=== PATIENT | female | born 1945 | race Caucasian/White ===

== ENCOUNTER → 2017-04-11 09:31 | Outpatient (CLI) | payer OTHER | END | disposition home or self-care (01) | LOC: LAB 09:31 | DX: R22.1 Localized swelling, mass and lump, neck (principal) ==

== ENCOUNTER 2017-04-18 06:28 | Outpatient (CLI) | payer OTHER | END 2017-04-18 06:39 | disposition home or self-care (01) | LOC: LAB 06:28 | DX: N39.0 Urinary tract infection, site not specified (principal); B34.9 Viral infection, unspecified; R82.79 Other abnormal findings on microbiological examination of urine ==

== ENCOUNTER 2017-05-14 12:41 | Outpatient (CLI) | payer OTHER | END 2017-05-14 16:20 | disposition home or self-care (01) | LOC: SONOGRAMA 12:41 | DX: N39.0 Urinary tract infection, site not specified (principal) ==

== ENCOUNTER → 2017-06-24 | Outpatient (CLI) | payer OTHER | END | disposition home or self-care (01) | LOC: TOM 08:13 | DX: R51 Headache (principal); S09.90XD Unspecified injury of head, subsequent encounter ==

== ENCOUNTER 2017-10-31 07:05 | Outpatient (CLI) | payer OTHER | END 2017-10-31 07:29 | disposition home or self-care (01) | LOC: LAB 07:05 | DX: I10 Essential (primary) hypertension (principal); Z13.0 Encounter for screening for diseases of the blood and blood-forming organs and certain disorders involving the immune mechanism; Z13.220 Encounter for screening for lipoid disorders; Z13.29 Encounter for screening for other suspected endocrine disorder; N39.0 Urinary tract infection, site not specified ==

== ENCOUNTER 2018-04-03 11:36 | Outpatient (CLI) | payer OTHER | END 2018-04-03 13:37 | disposition home or self-care (01) | LOC: LAB 11:36 | DX: N30.00 Acute cystitis without hematuria (principal); B96.1 Klebsiella pneumoniae [K. pneumoniae] as the cause of diseases classified elsewhere ==

== ENCOUNTER 2018-04-27 06:35 | Outpatient (CLI) | payer OTHER | END 2018-04-27 06:44 | disposition home or self-care (01) | LOC: LAB 06:35 | DX: I11.9 Hypertensive heart disease without heart failure (principal); E03.8 Other specified hypothyroidism ==

== ENCOUNTER 2018-05-13 14:47 | Outpatient (CLI) | payer OTHER | END 2018-05-13 15:23 | disposition home or self-care (01) | LOC: LAB 14:47 | DX: H25.011 Cortical age-related cataract, right eye (principal); Z98.41 Cataract extraction status, right eye; Z01.812 Encounter for preprocedural laboratory examination ==

== ENCOUNTER → 2018-05-15 | Outpatient (CLI) | payer OTHER | END | disposition home or self-care (01) | LOC: NUCLEAR 07:00 | DX: I20.9 Angina pectoris, unspecified (principal) | CPT/HCPCS: 78452; 93017; A9500; J0153 ==

== ENCOUNTER 2018-08-19 06:52 | Outpatient (CLI) | payer OTHER | END 2018-08-19 07:07 | disposition home or self-care (01) | LOC: LAB 06:52 | DX: E78.00 Pure hypercholesterolemia, unspecified (principal); I10 Essential (primary) hypertension; Z13.0 Encounter for screening for diseases of the blood and blood-forming organs and certain disorders involving the immune mechanism; Z13.29 Encounter for screening for other suspected endocrine disorder ==

== ENCOUNTER 2019-01-05 06:23 | Outpatient (CLI) | payer OTHER | END 2019-01-05 06:28 | disposition home or self-care (01) | LOC: LAB 06:23 | DX: E78.00 Pure hypercholesterolemia, unspecified (principal) ==

== ENCOUNTER 2019-01-12 13:11 | Outpatient (CLI) | payer OTHER | END 2019-01-12 13:13 | disposition home or self-care (01) | LOC: MRI 13:11 | DX: M22.42 Chondromalacia patellae, left knee (principal) | CPT/HCPCS: 73718 ==

== ENCOUNTER → 2019-03-01 06:12 | Outpatient (CLI) | payer OTHER | END | disposition home or self-care (01) | LOC: LAB 06:12 | DX: E55.9 Vitamin D deficiency, unspecified (principal); Z13.0 Encounter for screening for diseases of the blood and blood-forming organs and certain disorders involving the immune mechanism; Z13.220 Encounter for screening for lipoid disorders; Z13.29 Encounter for screening for other suspected endocrine disorder; I10 Essential (primary) hypertension ==

== ENCOUNTER 2019-04-06 06:55 | Outpatient (CLI) | payer OTHER | END 2019-04-06 07:05 | disposition home or self-care (01) | LOC: LAB 06:55 | DX: R41.89 Other symptoms and signs involving cognitive functions and awareness (principal); R41.3 Other amnesia; E03.8 Other specified hypothyroidism; F03.90 Unspecified dementia, unspecified severity, without behavioral disturbance, psychotic disturbance, mood disturbance, and anxiety ==

== ENCOUNTER 2019-05-14 06:20 | Outpatient (CLI) | payer OTHER | END 2019-05-14 15:00 | disposition home or self-care (01) | LOC: LAB 06:20 | DX: B34.8 Other viral infections of unspecified site (principal); I10 Essential (primary) hypertension; E78.00 Pure hypercholesterolemia, unspecified; N39.0 Urinary tract infection, site not specified; E55.9 Vitamin D deficiency, unspecified ==

== ENCOUNTER 2020-02-11 10:56 | Outpatient (CLI) | payer OTHER | END 2020-02-11 12:04 | disposition home or self-care (01) | LOC: RAD 10:56 → MAMO-SONO 10:56 | PROVIDERS: ATTEND Obstetrics & Gynecology | DX: Z12.31 Encounter for screening mammogram for malignant neoplasm of breast (principal); N60.11 Diffuse cystic mastopathy of right breast; N60.12 Diffuse cystic mastopathy of left breast ==

== ENCOUNTER 2020-03-27 13:19 | Outpatient (CLI) | payer OTHER | END 2020-03-27 14:06 | disposition home or self-care (01) | LOC: NUCLEAR 13:19 | PROVIDERS: ATTEND Obstetrics & Gynecology | DX: M81.0 Age-related osteoporosis without current pathological fracture (principal) ==

== ENCOUNTER → 2020-04-03 06:57 | Outpatient (CLI) | payer OTHER | END | disposition home or self-care (01) | LOC: LAB 06:57 | PROVIDERS: ATTEND Neuromusculoskeletal Medicine & OMM | DX: R41.89 Other symptoms and signs involving cognitive functions and awareness (principal); R41.3 Other amnesia; E03.8 Other specified hypothyroidism; F03.90 Unspecified dementia, unspecified severity, without behavioral disturbance, psychotic disturbance, mood disturbance, and anxiety; I10 Essential (primary) hypertension; E78.49 Other hyperlipidemia; N30.00 Acute cystitis without hematuria; E83.51 Hypocalcemia; Z12.11 Encounter for screening for malignant neoplasm of colon; E06.3 Autoimmune thyroiditis; N95.8 Other specified menopausal and perimenopausal disorders; R97.8 Other abnormal tumor markers; Z11.3 Encounter for screening for infections with a predominantly sexual mode of transmission; A60.04 Herpesviral vulvovaginitis; R74.9 Abnormal serum enzyme level, unspecified; R74.8 Abnormal levels of other serum enzymes; E22.1 Hyperprolactinemia; E28.2 Polycystic ovarian syndrome ==

== ENCOUNTER → 2022-04-04 | Outpatient (CLI) | payer OTHER | END | disposition home or self-care (01) | LOC: MAMO-SONO 11:11 | PROVIDERS: ATTEND Surgery | DX: C50.411 Malignant neoplasm of upper-outer quadrant of right female breast (principal); N60.11 Diffuse cystic mastopathy of right breast; N60.12 Diffuse cystic mastopathy of left breast ==